=== PATIENT | male | born 1970 | race Hispanic/Latino ===

== ENCOUNTER 2025-06-04 17:15 | Emergency (ER) | payer OTHER ==
[~2025-06-04] VITALS: Ht 167.6 cm; Wt 70.1 kg
[~2025-06-04 17:15] MED LIST: KETOROLAC TROME10 MG PO
[2025-06-04 17:20] VITALS: PULSE 98; RESP 18; TEMP 98.5; O2SAT 95
[2025-06-04] MEDS ORDERED: TRESIBA100 UNIT/1 SQ (17:40)
[2025-06-04] MEDS ORDERED: METFORMIN HCL500 M2 PO (17:40)
== END 2025-06-04 17:59 | disposition home or self-care (01) ==
LOC: FSED 17:20
DX: Z43.1 Encounter for attention to gastrostomy (principal); L98.8 Other specified disorders of the skin and subcutaneous tissue; E11.9 Type 2 diabetes mellitus without complications
CPT/HCPCS: 99283